=== PATIENT | female | born 1955 | race Caucasian/White ===

== ENCOUNTER 2019-12-16 13:49 | Outpatient (CLI) | payer MEDICARE, SELFPAY ==
--- NOTE | ~2019-12-16 | XR_ITS ---
XR knee LT 3V DATE: 12/16/2019 14:13 INDICATION: Left knee pain TECHNIQUE: 3 views COMPARISON: None FINDINGS: There is very mild particular spurring at the medial, lateral and patellofemoral compartmen ts. There is superior pole patellar enthesopathy at the quadriceps tendon insertion. Knee joint spaces are relatively preserved. No fracture, dislocation, periosteal reaction or bone destruction is evident. No radiopaque intra-art icular loose body or chondrocalcinosis. IMPRESSION: Mild tricompartment osteoarthritis Reviewed, dictated and finalized at location B.
--- NOTE | ~2019-12-16 | XR_ITS ---
XR knee RT 3V DATE: 12/16/2019 14:13 INDICATION: Bilateral knee pain. Fall 6 weeks ago. TECHNIQUE: 3 views COMPARISON: None FINDINGS: There is mild periarticular spurring at all 3 compartments. Joint spaces are relatively pre served. No fracture or dislocation, periosteal reaction or bone destruction. Small suprapatellar bursa knee j oint effusion is suggested. No radiopaque intra-articular loose body or chondrocalcinosis. IMPRESSION: Mild tricompartment osteoarthritis Small suprapatellar knee joint effusion is not excluded Reviewed, dictated and finalized at location B.
== END 2019-12-16 13:50 | disposition home or self-care (01) ==
PROVIDERS: PCP Family Medicine; Visit Provider Physician Assistant
DX: M17.0 Bilateral primary osteoarthritis of knee (principal)
CPT/HCPCS: 73562

== ENCOUNTER 2020-06-08 14:51 | Outpatient (CLI) | payer MEDICARE, SELFPAY ==
--- NOTE | ~2020-06-08 | MM_ITS ---
EXAMINATION: MM screening [facility] BI w travis HISTORY: Screening TECHNIQUE: Craniocaudal and mediolateral oblique 3-D tomosynthesis images were obtained and synthetic 2-D images were generated. CAD analysis was submitted and interpreted. COMPARISON: 10/28/2018 BREAST PARENCHYMAL COMPOSITION: There are scattered areas of fibroglandular density. FINDINGS: The right breast is stable without evidence for malignancy. There is developing focal asymm etry in the upper outer quadrant of the left breast, middle third. IMPRESSION: 1. Developing left breast asymmetry, upper outer quadrant, middle third. 2. Additional mammographic views and possible breast ultrasound are recommended. BI-RADS Category 0: Incomplete: Needs additional imaging evaluation. Reviewed, dictated and finalized at location A. 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 Developing left breast asymmetry, upper outer quadrant, middle third. 2. Additional mammographic views and possible breast ultrasound are recommended . BI-RADS Category 0: Incomplete: Needs additional imaging evaluation.
== END 2020-06-08 14:52 | disposition home or self-care (01) ==
LOC: ANHIMG 14:57
PROVIDERS: PCP Family Medicine; Visit Provider Nurse Practitioner Family
DX: Z12.31 Encounter for screening mammogram for malignant neoplasm of breast (principal); R92.8 Other abnormal and inconclusive findings on diagnostic imaging of breast
CPT/HCPCS: 77063; 77067

== ENCOUNTER 2020-07-08 13:40 | Outpatient (CLI) | payer MEDICARE, SELFPAY ==
--- NOTE | ~2020-07-08 | MMUS_ITS ---
EXAMINATION: MM diagnostic mammo unilat LT, US breast LT limited HISTORY: Developing asymmetry of the left breast on screening mammogram and palpable left breast mass at the 12:00 location TECHNIQUE: Additional 3-D tomosynthesis images of the left breast were performed and synthetic 2-D im ages were generated. CAD analysis was submitted and interpreted. High resolution limited left breast ultrasound was performed. COMPARISON: 06/08/2020, 10/28/2018 FINDINGS: MAMMOGRAPHIC FINDINGS: There is an approximately 2.3 x 1.1 cm irregular high density mass with spiculated margins at the 2:0 0 location in the middle third of the upper outer quadrant of the breast 8 cm from the nipple. ULTRASOUND: There is a 2.1 x 1.3 cm irregular, parallel, hypoechoic mass with spiculated and irregular margins, p osterior acoustic shadowing, and peripheral vascularity at the 12:00 location corresponding to the pa lpable abnormality of concern and developing asymmetry on mammogram. IMPRESSION: 1. Suspicious left breast mass. 2. Ultrasound-guided biopsy is recommended. BI-RADS category 5, highly suggestive of malignancy. Reviewed, dictated and finalized at location A. MOUNTER IMPRESSION: 1. Suspicious left breast mass. 2. Ultrasound-guided biopsy is recommended. BI-RADS category 5, highly suggestive of malignancy.
== END 2020-07-08 13:41 | disposition home or self-care (01) ==
PROVIDERS: PCP Family Medicine; Visit Provider Nurse Practitioner Family
DX: N63.20 Unspecified lump in the left breast, unspecified quadrant (principal); R92.8 Other abnormal and inconclusive findings on diagnostic imaging of breast
CPT/HCPCS: 76642; 77065

== ENCOUNTER 2020-08-04 10:01 | Outpatient (CLI) | payer MEDICARE, SELFPAY ==
--- NOTE | ~2020-08-04 | MMUS_ITS ---
EXAMINATION: US breast biopsy LT w image, MM post biopsy invasive LT DATE: 08/04/2020 11:01 (accession [id number]), 08/04/2020 11:30 (accession [id number]) INDICATION: Indeterminate mass at the 12:00 location in the left breast. Ultrasound-guided core biops y is requested to evaluate for malignancy. TECHNIQUE AND FINDINGS: The risks and potential benefits of the procedure were discussed with the patient including bleeding, infection, and nondiagnostic specimen. A time out was performed. The skin of the left breast was pre pared and draped in usual sterile fashion. 1% lidocaine was used for superficial anesthesia. 1% lidoc katherine with epinephrine was used for deep anesthesia. A vacuum-assisted biopsy gun needle was advanced through to the outer edge of the region of interest from a lateral approach utilizing sonographic guidance. A total of three tissue core samples were obt ained through the lesion. A tissue marker clip was then placed at the biopsy site. Hemostasis was ach ieved. A sterile bandage was applied. The patient tolerated procedure well and there was no evidence of immediate complication. The patient was given verbal instructions to return to the Emergency Department in the event of severe breast pa in or rapid breast enlargement. A two view left breast mammogram was obtained to document tissue jermain er clip placement. IMPRESSION: 1. Successful ultrasound-guided vacuum-assisted biopsy of left breast mass with tissue marker placeme nt. Reviewed, dictated and finalized at location A. IMPRESSION: 1. Successful ultrasound-guided vacuum-assisted biopsy of left breast mass with tissue marker placement.
== END 2020-08-04 10:02 | disposition home or self-care (01) ==
PROVIDERS: PCP Family Medicine; Visit Provider Surgery
DX: N63.20 Unspecified lump in the left breast, unspecified quadrant (principal); R92.8 Other abnormal and inconclusive findings on diagnostic imaging of breast
CPT/HCPCS: 19083; 88305

== ENCOUNTER 2020-12-20 12:56 | Outpatient (CLI) | payer MEDICARE, SELFPAY ==
--- NOTE | ~2020-12-20 | DEXA_ITS ---
Bone Density Report Name: Luciana Rasmussen Age: 65 Sex: Female Ethnicity: White Date of : 1955 Indication: postmenopausal osteoporosis; asthma or emphysema; Referring Provider: Osmin Sandra Study: Bone densitometry was performed. Exam Date: December 20, 2020 Accession number: [id number] Bone Density: Region BMD T-score Z-score Classification AP Spine (L1-L4) 0.834 -1.9 0.0 Osteopenia Femoral Neck (Left) 0.670 -1.6 0.0 Osteopenia Total Hip (Left) 0.853 -0.7 0.6 Normal Total Hip Bilateral Avg 0.860 -0.7 0.7 Normal Femoral Neck (Right) 0.649 -1.8 -0.2 Osteopenia Total Hip (Right) 0.866 -0.6 0.7 Normal World Health Organization criteria for BMD impression classify patients as: Normal (T-score at or above -1.0), Osteopenia (T-score between -1.0 and -2.5), or Osteoporosis (T-score at or below -2.5). 10-year Fracture Risk(1): Major Osteoporotic Fracture 8.4% Hip Fracture 1.1% Reported Risk Factors: [place] (), Neck BMD=0.649, BMI=46.4 (1) FRAX(R) Version 3.08. Fracture probability calculated for an untreated patient. Fracture probability may be lower if the patient has received treatment. Previous Exams: Region Exam Age BMD T-score BMD Change BMD Change Date g/cm2 vs Baseline vs Previous AP Spine(L1-L4) 12/20/2020 65 0.834 -1.9 0.079(10.5%)* 0.079(10.5%)* 10/28/2018 63 0.755 -2.7 Total Hip(Left) 12/20/2020 65 0.853 -0.7 -0.003(-0.4%) -0.003(-0.4%) 10/28/2018 63 0.856 -0.7 Total Hip(Right) 12/20/2020 65 0.866 -0.6 0.068(8.5%)* 0.068(8.5%)* 10/28/2018 63 0.798 -1.2 *Denotes significance at 95% confidence level, LSC for AP Spine = 0.022 g/cm2, LSC for Total Hip = 0.027 g/cm2 Clinical Information Provided by Patient: Has used the following medications: Vitamin D, Calcium Has the following medical conditions: Asthma or Emphysema Patient maximum height was 63 Menopause Age: 45 No regular weight bearing exercise Does not regularly consume dairy products Onset of menses at age 12 Number of children 2 Impression: The patient has low bone mass, based on the Total Spine T-score. The patient has an estimated ten-year risk of hip fracture of 1.1% and an estimated ten-year risk of major fracture of 8.4%, based on the WHO FRAX algorithm. No significant bone loss was observed. Discussion: BONE DENSITY IS LOW AT ONE OR MORE SKELETAL SITES. This patient's lowest T-score is low at one or more skeletal sites. It
== END 2020-12-20 12:57 | disposition home or self-care (01) ==
LOC: ANHIMG 12:57
PROVIDERS: PCP Family Medicine; Visit Provider Physician Assistant
DX: Z78.0 Asymptomatic menopausal state (principal); M85.88 Other specified disorders of bone density and structure, other site; M85.852 Other specified disorders of bone density and structure, left thigh; M85.851 Other specified disorders of bone density and structure, right thigh
CPT/HCPCS: 77080

== ENCOUNTER 2020-12-21 15:03 | Outpatient (CLI) | payer MEDICARE, SELFPAY ==
--- NOTE | ~2020-12-21 | XR_ITS ---
EXAMINATION: XR mandible min 4V DATE: 12/21/2020 15:49 INDICATION: Right jaw pain. Clinical concern for mandibular osteonecrosis. TECHNIQUE: 5 views of the mandible were obtained. COMPARISON: None. FINDINGS: Bone alignment is normal. No fracture. There is moderate osteoarthritis of the temporomandi bular joints. IMPRESSION: 1. No evidence of mandibular osteonecrosis. 2. Moderate osteoarthritis of the temporomandibular joints. Reviewed, dictated and finalized at location A.
== END 2020-12-21 15:04 | disposition home or self-care (01) ==
LOC: ANHIMG 15:07
PROVIDERS: PCP Family Medicine; Visit Provider Nurse Practitioner Family
DX: R68.84 Jaw pain (principal); M26.643 Arthritis of bilateral temporomandibular joint
CPT/HCPCS: 70110

== ENCOUNTER → 2021-03-25 03:23 | Outpatient (CLI) | payer MEDICARE, SELFPAY ==
[2021-03-25 18:10] LABS: SARS-CoV-2 RNA PCR Positive
== END ==
PROVIDERS: PCP Family Medicine; Visit Provider Family Medicine
DX: U07.1 COVID-19 (principal)
CPT/HCPCS: C9803; U0003; U0005

== ENCOUNTER 2021-06-26 20:51 | Emergency (ER) | payer MEDICARE, SELFPAY ==
--- NOTE | ~2021-06-26 | CT_ITS ---
EXAMINATION: CT brain wo con DATE: 06/26/2021 21:38 INDICATION: Head injury. TECHNIQUE: Computed tomography (CT) of the head was performed without intravenous contrast. The mA wa s adjusted according to patient size. Iterative reconstruction technique was employed. The dose-lengt h product was 605.33 mGy-cm. COMPARISON: None FINDINGS: There are scattered areas of low attenuation in the cerebral white matter. There is no intr acranial hemorrhage, acute infarction, or abnormal intracranial mass lesion. The ventricles are ann-marie l in size. There is mild mucosal thickening in the paranasal sinuses. There are likely changes of ocu lar lens replacement surgeries. There is a small left mastoid effusion. IMPRESSION: 1. Mild nonspecific cerebral white matter disease, which likely represents chronic small vessel ische danni disease. Reviewed, dictated and finalized at location A. 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 Mild nonspecific cerebral white matter disease, which likely represents ground wood supervisor reji small vessel ischemic disease.
--- NOTE | ~2021-06-26 | XR_ITS ---
EXAMINATION: XR_RIBSRTCXR1_CR INDICATION: Right-sided chest pain TECHNIQUE: A frontal view of the chest and 3 views of the right ribs were obtained. COMPARISON: None. FINDINGS: The lungs are free of acute opacities. There is no pleural effusion or pneumothorax. The ca rdiomediastinal silhouette is normal. There is a questionable fracture at the anterolateral aspect of the right fifth rib. Surgical clips in the right upper quadrant are likely from prior cholecystectom y. IMPRESSION: 1. Possible anterolateral fracture of the right fifth rib. 2. No acute cardiopulmonary abnormality. Reviewed, dictated and finalized at location F. 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
[2021-06-26 20:42] VITALS: BP 158/85; PULSE 71; RESP 18; TEMP 36.9; O2SAT 97
[2021-06-26] MEDS: fentaNYL CITRATE INJ (*CRX) 100 MCG/2 ML VIAL 50 MCG IV PUSH (21:11)
[2021-06-26 21:45] VITALS: BP 131/59; PULSE 66; RESP 20; O2SAT 96
--- NOTE | 2021-06-26 23:09 | ED.FALL ---
HPI - Fall General Chief Complaint: Fall Stated Complaint: Fall missed one step - unk loc Time Seen by Provider: 06/26/21 20:53 History of Present Illness HPI Narrative: Patient is a 65-year-old female who presents ER after falling down one step. Patient fell forwards into a cabinet. She struck her head. Unknown loss of consciousness. Family reports her eyes were rolled in the back of her head and she was making weird noises when they arrive to check on her. Patient is having right-sided chest wall pain. Also has pain with deep breath. No cough or dyspnea.. No discomfort arms or legs. Related Data Home Medications Medication Instructions Recorded Confirmed cholecalciferol (vitamin D3) 50 2,000 unit PO DAILY 05/16/19 05/04/21 mcg (2,000 unit) tablet diphenhydramine HCl 25 mg capsule 25 mg PO QID PRN 05/16/19 05/04/21 lactobacillus comb no.10 20 20,000 mmu cells PO DAILY 05/16/19 05/04/21 billion cell capsule ascorbic acid (vitamin C) 500 mg 500 mg PO DAILY 05/04/21 chewable tablet wshsyio-pnfzscxhiviod-gaeytora 250 1 tablet PO Q4-6H PRN 05/04/21 mg-250 mg-65 mg tablet zinc 50 mg tablet 50 mg PO DAILY 05/04/21 Allergies Allergy/AdvReac Type Severity Reaction Status Date / Time codeine Allergy Unknown Abdominal Verified 05/04/21 15:17 Pain morphine Allergy Unknown Swelling Verified 05/04/21 15:17 of Lip/Tongue/Throat latex Allergy Rash Verified 05/04/21 15:17 ibandronate sodium AdvReac jaw pain Verified 06/09/21 10:55 [From Rodney] Review of Systems Review of Systems: All systems reviewed & are unremarkable except as noted in HPI and below Constitutional: Constitutional: Denies chills, Denies fever(s) and Denies weakness ENT: Denies nasal congestion and Denies sore throat Cardiovascular: Cardiovascular: Reports chest pain, Denies rapid heart rate and Denies radiating jaw, neck or arm pain Respiratory: Respiratory: Denies cough, Denies dyspnea and Denies wheezing Gastrointestinal: Gastrointestinal: Denies abdominal pain, Denies nausea and Denies vomiting Neurologic: Reports syncope, Denies headache(s), Denies focal weakness and Denies numbness PMF Past Medical History Medical History (Updated 06/27/21 @ 00:23 by Ranjan Solano MD) Acquired hypothyroidism Chronic GERD Essential (primary) hypertension DORY (generalized anxiety disorder) HLD (hyperlipidemia) Major depression, chronic Prediabetes Surgical History Surgical History History of carpal tunnel repair History of cholecystectomy History of eye surgery History of foot surgery History of tubal ligation Family History Family History Mother Hypertension Family history of cardiovascular disease, Onset Age: 84 Father Patient's father is , Onset Age: 77 Sibling Patient's sister is in good health Patient's brother is in good health Patient's brother is , Onset Age: 59 Family history of cardiovascular disease Family history of malignant neoplasm Social History Social History (Updated 05/04/21 @ 15:18 by Shraddha David) Smoking status: Never smoker Second hand tobacco smoke exposure: No Alcohol intake: never Substance use: never Substance use type: does not use Gender identity (if verbalized by the patient): Female Sexual Orientation (if Verbalized by the Patient): Straight or Heterosexual Exam Narrative: GENERAL: Well-appearing, well-nourished, and in no acute distress. HEAD: Normocephalic, atraumatic. EYES: PERRLA and EOMI. ENT: Mucous membranes moist. CHEST: Clear to auscultation. No respiratory distress. TTP right chest wall w/o bruising/crepitus. HEART: Regular rate and rhythm. Normal peripheral pulses. ABDOMEN: Soft, nontender, nondistended. EXTREMITIES: Normal range of motion. No edema. SKIN: Warm, dry, no rash.
[2021-06-27 00:09] VITALS: BP 116/49; PULSE 68; RESP 18; O2SAT 96
[2021-06-27 01:11] VITALS: BP 118/52; PULSE 72; RESP 18; O2SAT 96
== END 2021-06-27 00:30 | disposition home or self-care (01) ==
PROVIDERS: Emergency Provider Emergency Medicine; PCP Family Medicine
DX: S22.31XA Fracture of one rib, right side, initial encounter for closed fracture (principal); S09.90XA Unspecified injury of head, initial encounter; E78.5 Hyperlipidemia, unspecified; I10 Essential (primary) hypertension; R73.03 Prediabetes; E03.9 Hypothyroidism, unspecified; K21.9 Gastro-esophageal reflux disease without esophagitis; F41.1 Generalized anxiety disorder; F32.9 Major depressive disorder, single episode, unspecified; Z79.82 Long term (current) use of aspirin
CPT/HCPCS: 70450; 71101; 96374; 99284; J3010

== ENCOUNTER → 2021-09-20 15:58 | Outpatient (CLI) | payer MEDICARE, SELFPAY ==
--- NOTE | ~2021-09-20 | XR_ITS ---
XR thoracic spine 2V DATE: 09/20/2021 16:43 INDICATION: Chest pain, back pain TECHNIQUE: AP and lateral and swimmer views COMPARISON: None FINDINGS: Diffuse osteopenia. Minimal scoliosis. There is mild to moderate degenerative spurring of the thoracic spine. The thoracic pedicles are inta ct. No paraspinal soft tissue thickening is detected. IMPRESSION: Osteopenia and degenerative change Minimal scoliosis Reviewed, dictated and finalized at location B.
--- NOTE | ~2021-09-20 | XR_ITS ---
XR_RIBSRTCXR1_CR DATE: 09/20/2021 16:43 INDICATION: Right pleural chest pain TECHNIQUE: PA chest. 3 views of the right ribs. COMPARISON: June 26, 2021 PA chest and right RIBS FINDINGS: There is callus formation associated with healing fractures of the posterolateral aspect of the right sixth, seventh, eighth and ninth ribs. Normal heart size. No hilar or mediastinal enlargement is evident. No pulmonary infiltrate or consoli dation, pleural effusion or pneumothorax. Diffuse osteopenia. Status post cholecystectomy. IMPRESSION: Healing right sixth through ninth rib fractures No active cardiac pulmonary disease Status post cholecystectomy Osteopenia Reviewed, dictated and finalized at Location A. Reviewed, dictated and finalized at location B.
== END ==
PROVIDERS: PCP Family Medicine; Visit Provider Family Medicine
DX: M54.6 Pain in thoracic spine (principal); R07.81 Pleurodynia; M85.88 Other specified disorders of bone density and structure, other site; M41.84 Other forms of scoliosis, thoracic region; S22.41XD Multiple fractures of ribs, right side, subsequent encounter for fracture with routine healing; Z90.49 Acquired absence of other specified parts of digestive tract
CPT/HCPCS: 71101; 72070

== ENCOUNTER 2021-11-10 01:15 | Day surgery (SDC) | payer MEDICARE, SELFPAY ==
[2021-10-27 14:55] VITALS: BMI 45.7
--- NOTE | ~2021-11-10 | XR_ITS ---
EXAMINATION: XR_ENEMABAC_CR DATE: 11/10/2021 12:26 INDICATION: Incomplete colonoscopy. Positive color guard test. TECHNIQUE: A e commerce specialist radiograph was obtained. A catheter was inserted into the patient's rectum. Contra st was infused by gravity. Gas was infused by hand pump. Fluoroscopic spot images and conventional ra diographs were obtained. Fluoroscopy exposure time was 3.7 minutes. A total of 22 fluoroscopic images and 24 overhead radiographs were obtained. COMPARISON: None. FINDINGS: Occupational Therapist Aide image demonstrates normal bowel gas pattern and several phleboliths in the pelvis. Redundant co domenico with tortuosity along the sigmoid, transverse and cephalad a sending colon. There are a few scatt ered diverticula along the sigmoid colon. No abnormal masses, strictures or suspicious mucosal irregu larity is identified. IMPRESSION: 1. Redundant colon with mild sigmoid diverticulosis. No abnormal masses or strictures Reviewed, dictated and finalized at location A. IMPRESSION: 1. Redundant colon with mild sigmoid diverticulosis. No abnormal masses or stri ctures
[2021-11-10 09:40] VITALS: BP 153/77; PULSE 69; RESP 20; TEMP 36.9; O2SAT 97
--- NOTE | 2021-11-10 09:44 | WPDGICN ---
Assessment and Plan Assessment and plan (1) Positive colorectal cancer screening using Cologuard test: Code(s): R19.5 - Other fecal abnormalities Status: Acute Assessment and Plan: Patient found to have positive Cologuard screening test. Plan is for surveillance colonoscopy now to evaluate exclude colon polyps. Further recommendations will be given after endoscopy. (2) Obese: Code(s): E66.9 - Obesity, unspecified Status: Acute Assessment and Plan: Patient is encouraged to monitor kill or stephen taken increase activity. GI Consult Note Consult date/time: 11/10/21 09:44 Reason for consult: Positive Cologuard test. HPI: Luciana Rasmussen is a 66 year old female Presents for screening colonoscopy. Patient recently was found to have a positive Cologuard test. Patient reports that her current weight appetite and bowel movements are normal. She denies abdominal pain. She has had no bleeding. She did have a previous colonoscopy 11 or 12 years ago that was unremarkable. Family history is noncontributory. Patient reports having a recent fall and a fracture of her right ribs currently causing some ongoing pain and difficulty in this area. Review of Systems Review of Systems: Review of systems noncontributory. [facility] Past Medical History Medical History (Updated 11/10/21 @ 09:46 by José Manuel Clark MD) Acquired hypothyroidism Asthma Chronic GERD Essential (primary) hypertension DORY (generalized anxiety disorder) HLD (hyperlipidemia) Hypothyroidism Major depression, chronic Prediabetes Surgical History Surgical History History of carpal tunnel repair History of cholecystectomy History of eye surgery History of foot surgery History of tubal ligation Family History Family History Mother Hypertension Family history of cardiovascular disease, Onset Age: 84 Father Patient's father is , Onset Age: 77 Sibling Patient's sister is in good health Patient's brother is in good health Patient's brother is , Onset Age: 59 Family history of cardiovascular disease Family history of malignant neoplasm Social History Social History Smoking status: Former smoker Tobacco type: cigarettes Second hand tobacco smoke exposure: No Alcohol intake: unknown Substance use: former Substance use type: does not use Living arrangements: alone Gender identity (if verbalized by the patient): Female Sexual Orientation (if Verbalized by the Patient): Straight or Heterosexual Spiritual care concerns: No Meds Home Medications and Allergies Home Medications Medication Instructions Recorded Confirmed Type cholecalciferol (vitamin D3) 50 2,000 unit PO DAILY 05/16/19 11/10/21 History mcg (2,000 unit) tablet diphenhydramine HCl 25 mg capsule 25 mg PO QID PRN (Drug) Ingestion 05/16/19 11/10/21 History (Benadryl) lactobacillus comb no.10 20 20,000 mmu cells PO DAILY 05/16/19 11/10/21 History billion cell capsule (Probiotic) losartan 25 mg tablet 25 mg PO DAILY #90 tabs 12/16/19 11/10/21 Rx bupropion HCl 150 mg tablet,12 hr See Rx Instructions .Route 02/28/21 11/10/21 Rx sustained-release .COMPLEX ##180 ascorbic acid (vitamin C) 500 mg 500 mg PO DAILY 05/04/21 11/10/21 History chewable tablet merptsu-hiiistewnrnnl-rdjokqwy 250 1 tablet PO Q4-6H PRN Migraine 05/04/21 11/10/21 History mg-250 mg-65 mg tablet (Excedrin Headache Migraine) zinc 50 mg tablet 50 mg PO DAILY 05/04/21 11/10/21 History venlafaxine 150 mg tablet,extended 150 mg PO DAILY #90 tabs 05/05/21 11/10/21 Rx release 24 hr famotidine 20 mg tablet See Rx Instructions .Route 07/11/21 11/10/21 Rx .COMPLEX #180 tabs tramadol 50 mg tablet 50 mg PO TID PRN pain #30 tabs 07/29/21 11/10/21
--- NOTE | 2021-11-10 09:48 | WPDANESEPPF ---
Anes - Initial Pre Proc Eval Procedure: Operation Date: 11/10/21 10:30 Proposed Procedures p Colonoscopy - José Manuel Clark MD Date/Time: 11/10/21 09:48 Surgeon: José Manuel Clark MD Pre Op Diagnosis: positive cologaurd Patient Data Age: 66 Gender: F Height: 1.6 m Weight: 116.7 kg Last Vital Signs Temp 36.9 C 11/10/21 09:40 Pulse 69 11/10/21 09:40 Resp 20 11/10/21 09:40 BP 153/77 H 11/10/21 09:40 Pulse Ox 97 11/10/21 09:40 O2 Del Method Room Air 11/10/21 09:40 Allergies Allergy/AdvReac Type Severity Reaction Status Date / Time codeine Allergy Unknown Abdominal Verified 11/10/21 09:35 Pain morphine Allergy Unknown Swelling Verified 11/10/21 09:35 of Lip/Tongue/Throat latex Allergy Rash Verified 11/10/21 09:35 ibandronate sodium AdvReac jaw pain Verified 11/10/21 09:35 [From [facility]] Home Medications Medication Instructions Recorded Confirmed Type cholecalciferol (vitamin D3) 50 2,000 unit PO DAILY 05/16/19 11/10/21 History mcg (2,000 unit) tablet diphenhydramine HCl 25 mg capsule 25 mg PO QID PRN (Drug) Ingestion 05/16/19 11/10/21 History (Benadryl) lactobacillus comb no.10 20 20,000 mmu cells PO DAILY 05/16/19 11/10/21 History billion cell capsule (Probiotic) losartan 25 mg tablet 25 mg PO DAILY #90 tabs 12/16/19 11/10/21 Rx bupropion HCl 150 mg tablet,12 hr See Rx Instructions .Route 02/28/21 11/10/21 Rx sustained-release .COMPLEX ##180 ascorbic acid (vitamin C) 500 mg 500 mg PO DAILY 05/04/21 11/10/21 History chewable tablet dgfgduj-akoubqnetbqmc-ozubkgdj 250 1 tablet PO Q4-6H PRN Migraine 05/04/21 11/10/21 History mg-250 mg-65 mg tablet (Excedrin Headache Migraine) zinc 50 mg tablet 50 mg PO DAILY 05/04/21 11/10/21 History venlafaxine 150 mg tablet,extended 150 mg PO DAILY #90 tabs 05/05/21 11/10/21 Rx release 24 hr famotidine 20 mg tablet See Rx Instructions .Route 07/11/21 11/10/21 Rx .COMPLEX #180 tabs tramadol 50 mg tablet 50 mg PO TID PRN pain #30 tabs 07/29/21 11/10/21 Rx levothyroxine 100 mcg tablet 100 mcg PO DAILY #30 tabs 09/09/21 11/10/21 Rx metoprolol tartrate 25 mg tablet 25 mg PO DAILY #90 tabs 09/09/21 11/10/21 Rx atorvastatin 40 mg tablet 40 mg PO DAILY #90 tabs 10/20/21 11/10/21 Rx sodium sul 1.479 gram-potas ch See Rx Instructions PO PER PKG DIR 10/27/21 11/10/21 Rx 0.188 gram-magnes sul 0.225 gram #24 tabs tablet (Sutab) lorazepam 1 mg tablet 1.5 mg PO TID PRN anxiety #135 tabs 10/31/21 11/10/21 Rx pregabalin 75 mg capsule (Lyrica) 75 mg PO BID #180 caps 10/31/21 11/10/21 Rx Patient hx anesthesia problems: none Family hx anesthesia problems: none Results Review: All pre-operative results and documents have been reviewed as part of the pre-operative evaluation. [facility] Past Medical History Medical History (Updated 11/10/21 @ 09:46 by José Manuel Clark MD) Acquired hypothyroidism Asthma Chronic GERD Essential (primary) hypertension DORY (generalized anxiety disorder) HLD (hyperlipidemia) Hypothyroidism Major depression, chronic Prediabetes Surgical History Surgical History History of carpal tunnel repair History of cholecystectomy History of eye surgery History of foot surgery History of tubal ligation Family History Family History Mother Hypertension Family history of cardiovascular disease, Onset Age: 84 Father Patient's father is , Onset Age: 77 Sibling Patient's sister is in good health Patient's brother is in good health Patient's brother is , Onset Age: 59 Family history of cardiovascular disease Family history of malignant neoplasm Social History Social History Smoking status: Former smoker Tobacco type: cigarettes Second hand tobacco smoke exposure: No Alcohol in
[2021-11-10] MEDS: LACTATED RINGERS 1,000 ML 150 ML IV CONT (09:51)
[2021-11-10 10:38] VITALS: BP 129/68; PULSE 70; RESP 35; O2SAT 96
[2021-11-10 10:48] VITALS: BP 102/60; PULSE 63; RESP 27; O2SAT 97
[2021-11-10 10:58] VITALS: BP 125/97; PULSE 65; RESP 19; O2SAT 96
== END 2021-11-10 11:05 | disposition home or self-care (01) ==
PROVIDERS: PCP Family Medicine; Visit Provider Internal Medicine Gastroenterology
PROC: 0DJD8ZZ Inspection of Lower Intestinal Tract, Via Natural or Artificial Opening Endoscopic (ICD-10-PCS; CPT 45378; principal; 2021-11-10 10:30)
DX: R19.5 Other fecal abnormalities (principal); Z79.82 Long term (current) use of aspirin; J45.909 Unspecified asthma, uncomplicated; E03.9 Hypothyroidism, unspecified; F32.A Depression, unspecified; F41.1 Generalized anxiety disorder; K21.9 Gastro-esophageal reflux disease without esophagitis; Z87.891 Personal history of nicotine dependence; E66.01 Morbid (severe) obesity due to excess calories; Z68.42 Body mass index [BMI] 45.0-49.9, adult
CPT/HCPCS: 45378; 74280; J2704; J7120

== ENCOUNTER → 2021-12-16 01:34 | Outpatient (CLI) | payer MEDICARE, SELFPAY ==
[2021-12-16 12:01] LABS: SARS-CoV-2 RNA PCR Negative
== END ==
PROVIDERS: PCP Family Medicine; Visit Provider Physician Assistant
DX: R05.9 Cough, unspecified (principal); R68.89 Other general symptoms and signs; Z20.822 Contact with and (suspected) exposure to COVID-19
CPT/HCPCS: C9803; U0003; U0005

== ENCOUNTER 2022-05-16 15:36 | Outpatient (CLI) | payer MEDICARE, SELFPAY ==
--- NOTE | ~2022-05-16 | US_ITS ---
EXAMINATION: US venous doppler [facility] DATE: 05/16/2022 16:18 INDICATION: M79.661 - Pain in right lower leg . TECHNIQUE: Grayscale images without and with compression and Doppler images of the bilateral lower ex tremity veins were obtained. COMPARISON: None FINDINGS: The right common femoral vein, profunda (deep) femoral vein, femoral vein, popliteal vein, peroneal v ein, posterior tibial veins, gastrocnemius vein, and greater saphenous vein are patent. The left common femoral vein, profunda femoral vein, femoral vein, popliteal vein, peroneal vein, pos terior tibial veins, gastrocnemius vein, and greater saphenous vein are patent. Small Weinberg's cyst. IMPRESSION: 1. Patent bilateral lower extremity veins. No evidence of deep venous thrombosis. Reviewed, dictated and finalized at location K. 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 Patent bilateral lower extremity veins. No evidence of deep venous thrombos is.
== END 2022-05-16 15:37 | disposition home or self-care (01) ==
PROVIDERS: PCP Family Medicine; Visit Provider Family Medicine
DX: M79.661 Pain in right lower leg (principal); M79.662 Pain in left lower leg; R60.0 Localized edema
CPT/HCPCS: 93970

== ENCOUNTER 2024-05-30 13:28 | Outpatient (CLI) | payer MEDICARE, SELFPAY ==
--- NOTE | ~2024-05-30 | DEXA_ITS ---
Bone Density Report Name: GHAZALA PAULA Age: 68 Sex: Female Ethnicity: White Date of : 1955 Indication: osteopenia; Referring Provider: NENA TORIBIO Study: Bone densitometry was performed. Exam Date: May 30, 2024 Accession number: [id number] Bone Density: Region BMD T-score Z-score Classification AP Spine(L1-L4) 0.871 -1.6 0.6 Osteopenia Femoral Neck (Left) 0.652 -1.8 0.1 Osteopenia Total Hip (Left) 0.939 0.0 1.5 Normal Femoral Neck (Right) 0.695 -1.4 0.5 Osteopenia Total Hip (Right) 0.876 -0.5 1.0 Normal Total Hip Mean 0.907 -0.3 1.3 Normal World Health Organization criteria for BMD impression classify patients as: Normal (T-score at or above -1.0), Osteopenia (T-score between -1.0 and -2.5), or Osteoporosis (T-score at or below -2.5). 10-year Fracture Risk(1): Major Osteoporotic Fracture 9.2% Hip Fracture 1.4% Reported Risk Factors: [place] (), Neck BMD=0.652, BMI=43.5 (1) FRAX(R) Version 3.08. Fracture probability calculated for an untreated patient. Fracture probability may be lower if the patient has received treatment. Previous Exams: Region Exam Age BMD T-score BMD Change BMD Change Date g/cm2 vs Baseline vs Previous AP Spine (L1-L4) 05/30/2024 68 0.871 -1.6 0.116 (15.4%)# 0.037 (4.4%)# 12/20/2020 65 0.834 -1.9 0.079 (10.5%)* 0.079 (10.5%)* 10/28/2018 63 0.755 -2.7 Total Hip(Left) 05/30/2024 68 0.939 0.0 0.083 (9.7%)* 0.086 (10.1%)* 12/20/2020 65 0.853 -0.7 -0.003 (-0.4%) -0.003 (-0.4%) 10/28/2018 63 0.856 -0.7 Total Hip(Right) 05/30/2024 68 0.876 -0.5 0.078 (9.7%)* 0.010 (1.1%) 12/20/2020 65 0.866 -0.6 0.068 (8.5%)* 0.068 (8.5%)* 10/28/2018 63 0.798 -1.2 *Denotes significance at 95% confidence level, LSC for AP Spine = 0.022 g/cm2, LSC for Total Hip = 0.027 g/cm2 # Denotes dissimilar scan types or analysis methods Clinical Information Provided by Patient: Menopause Age: 45 Impression: The patient has low bone mass, based on the Left Femoral Neck T-score. The patient has an estimated ten-year risk of hip fracture of 1.4% and an estimated ten-year risk of major fracture of 9.2%, based on the WHO FRAX algorithm. No significant bone loss was observed. Discussion: BONE DENSITY IS LOW AT ONE OR MORE SKELETAL SITES. This patient's lowest T-score is low at one or more skeletal sites. It meets the World Health Organization's (WHO) criteria for ?low bone mass? (T-score between -1.0 and -2.5). The patient's 10-year risk of fracture as calculated by FRAX is less than the threshold where pharmacological therapy is recommended by the National Osteoporosis Foundation (NOF). However, all treatment decisions require clinical judgment and consideration of individual patient factors, including patient preferences, comorbidities, previous drug use, risk factors not captured in the FRAX model (e.g., frailty, falls, vitamin D deficiency, increased bone turnover, interval significant decline in bone density) and possible under or overestimation of fracture risk by FRAX. The patient should follow a healthful lifestyle (good nutrition with adequate calcium and vitamin D, and appropriate weight-bearing exercise). Follow-Up: Consider repeating this study in 2 to 3 years to reassess this patient's status, or sooner if there is some new clinical indication. Reported by: FELIPE on 05/30/2024 2:21:00 PM. Reviewed, dictated and finalized at location AHamilton BORJAS
== END 2024-05-30 13:29 | disposition home or self-care (01) ==
LOC: ANHIMG 13:29
PROVIDERS: PCP Family Medicine; Visit Provider Family Medicine
DX: Z78.0 Asymptomatic menopausal state (principal); M85.88 Other specified disorders of bone density and structure, other site; M85.852 Other specified disorders of bone density and structure, left thigh; M85.851 Other specified disorders of bone density and structure, right thigh
CPT/HCPCS: 77080